=== PATIENT | female | born 1950 | race Caucasian/White ===

== ENCOUNTER 2022-09-25 15:02 | Emergency (ER) | payer MEDICARE, SELFPAY ==
--- NOTE | ~2022-09-25 | CT_ITS ---
EXAMINATION: CT HEAD WITHOUT CONTRAST CLINICAL INFORMATION: Head injury COMPARISON: None available. TECHNIQUE: Contiguous axial imaging was performed from the skull base to vertex without intravenous administration of contrast. This CT examination was performed using dose optimization techniques as appropriate, variously including the following: *Automated exposure control *Adjustment of mA and/or kV according to patient size (this includes techniques or standardized protocols for targeted exams where dose is matched to indication/reason for exam; i.e. extremities or head) *Use of iterative reconstruction technique DLP: 527 mGy-cm FINDINGS: There is no midline shift. There is no mass effect. There is no hemorrhage. The basal cisterns appear patent. The posterior fossa is grossly within normal limits. No extra-axial collection is seen. Some scattered areas of probable white matter ischemic change. No fracture is seen on the bone windows. CT/CT head/brain wo IV con IMPRESSION: Negative acute noncontrast CT of the brain.
--- NOTE | 2022-09-25 15:39 | ED.HEATRA ---
HPI - Head Injury General Chief complaint: Head Injury Stated complaint: head inj, hit with ball Time Seen by Provider: 09/25/22 19:06 Source: patient, family, RN notes reviewed and old records reviewed Mode of arrival: ambulatory Limitations: no limitations History of Present Illness HPI Narrative: 72-year-old female presents for evaluation after a head trauma Patient reports that she was at a baseball game when she was not paying attention to the better. The ball was head off the bat and struck the patient on the right side of the head She did not lose consciousness and reports that she actually ?kept talking to the person next to me. ? She is now complaining of a mild left-sided headache Denies any nausea vomiting, blurry vision She is not anticoagulation Denies any other injuries Related Data Allergies Allergy/AdvReac Type Severity Reaction Status Date / Time erythromycin base Allergy Unknown Unknown Verified 09/25/22 15:43 [From Erythrocin] nitrofurantoin Allergy Unknown Unknown Verified 09/25/22 15:43 [From Macrobid] sulfamethoxazole Allergy Unknown Unknown Verified 09/25/22 15:43 [From Bactrim] trimethoprim [From Bactrim] Allergy Unknown Unknown Verified 09/25/22 15:43 Review of Systems Constitutional: Constitutional: Reports headache(s) Eyes: Eyes: Denies blurry vision and Denies diplopia ENT: Reports headache(s) Gastrointestinal: Gastrointestinal: Denies nausea Neurologic: Reports headache(s) PMFSH Social History Social History Smoked in Last 30 Days: No Use of substances other than those prescribed or required for medical reasons: No Advance Directives: No Advance Directives Information Provided: No Physical Exam Vital Signs: Vital Signs: Last Vital Signs Temp 97.3 F 09/25/22 15:40 Pulse 65 09/25/22 18:08 Resp 16 09/25/22 18:08 BP 177/76 H 09/25/22 18:08 Pulse Ox 98 09/25/22 18:08 O2 Del Method Room Air 09/25/22 18:08 BMI result Body Mass Index 22.6 Const: General: healthy appearing, comfortable, no acute distress, alert and awake Nutritional Appearance: well nourished Orientation/consciousness: patient oriented x3 Eyes: Eyelids: Yes eyelids normal Conjunctivae: conjunctivae normal Sclerae: sclerae normal Corneas: corneas normal Pupils: Equal, round and reactive pupils present EOM: EOMs intact bilaterally Neck: Neck: Yes full ROM Resp: Effort & Inspection: normal respiratory effort, able to speak in complete sentences and not labored Skin: General skin exam: no rashes or lesions noted and elasticity normal Neuro: General: patient oriented x3 Cranial nerves: Yes CN's II-XII intact bilaterally, Yes Equal, round and reactive pupils present and Yes Bilaterally intact EOM present Cognition (Neuro): normal cognition Course Course Course Narrative: This is an RME: Additional HPI, ROS, PE not included below will be deferred to primary provider. Patient is a 72-year-old female who presents to the emergency department for evaluation after a head injury. States today was at a baseball game, sustained injury from fly ball to R lateral head at 13:45. Increasing pain, with dizziness. Denies neck pain, neck stiffness, no fall with this. No use of anticoagulants or clotting disorders. PE: no focal neurological defitits. Plan: CT head Medical Decision Making Medical Decision Making MDM Narrative: 72-year-old female presents for evaluation of a headache after being struck in the head by a baseball. CT scan the brain does not show any evidence of traumatic injury. The patient is neurologically intact. 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 Differential Diagnosis Minor head injury Closed head injury Concussion Intracranial hemorrhage Independent Interpretation I performed an independent interpretation of an: CT Scan (No obvious intracranial hemorrhage) Radiology Impression Discussion of test interpretation with radiology: I have reviewed the radiologist's reading. (No evidence of intracranial hemorrhage) Discharge Plan Discharge Clinical Impression: Closed head injury Patient Disposition: Home, Self-Care Instructions: Head Injury (ED) Additional Instructions: Your CT scan does not show any evidence of traumatic injury Return for new or worsening symptoms, especially if you have blurry vision, double vision, nausea vomiting or change in mental status Follow-up with your primary doctor You may use ibuprofen or Tylenol for headaches
[2022-09-25 15:40] VITALS: BP 167/74; PULSE 88; RESP 16; TEMP 36.3; O2SAT 98; BMI 22.6
[2022-09-25 18:08] VITALS: BP 177/76; PULSE 65; RESP 16; O2SAT 98
[2022-09-25 19:47] VITALS: PULSE 79; RESP 18; TEMP 36.6; O2SAT 100
== END 2022-09-25 19:51 | disposition home or self-care (01) ==
PROVIDERS: Emergency Provider Internal Medicine; PCP Family Medicine
DX: S09.90XA Unspecified injury of head, initial encounter (principal); R51.9 Headache, unspecified; M54.2 Cervicalgia; Y29.XXXA Contact with blunt object, undetermined intent, initial encounter; Y93.9 Activity, unspecified; Y92.9 Unspecified place or not applicable; Y99.9 Unspecified external cause status
CPT/HCPCS: 70450; 99284